=== PATIENT | female | born 1985 | race Two or more races ===

== ENCOUNTER 2019-12-15 00:22 | Emergency (ER) | payer MEDICARE, MEDICAID ==
[~2019-12-15] VITALS: Ht 137.2 cm; Wt 56.8 kg
[~2019-12-15 00:22] MED LIST: ADV250 IH; ALBU8HFA IH; BACL10TA PO; CHOL200026 PO; DIVA-76 PO; DULO30CA2 PO; LEVE1000 PO; PANT40TA25 PO; PRAZ2 PO; ZOLP10TA7 PO
[2019-12-15] MEDS ORDERED: TERA2CAP10 PO (00:48)
[2019-12-15] MEDS ORDERED: NAPR-1025 PO (00:48)
[2019-12-15] MEDS ORDERED: MELA3TAB82 PO (00:48)
[2019-12-15] MEDS ORDERED: TOPI25 PO (00:48)
[2019-12-15] MEDS ORDERED: PERTUSS(ACELL),DIPH,TET VAC/PF 0.5 ML VIAL IM ONE (01:00)
[2019-12-15 01:10] LABS: BASOPHILS % (AUTO) 0.8 % (0.0-2.0); EOSINOPHILS % (AUTO) 1.7 % (1.0-6.0); HEMATOCRIT 42.7 % (36-46); LYMPHOCYTES # (AUTO) 2.8 K/uL (1.0-4.8); LYMPHOCYTES % (AUTO) 34.3 % (22.0-44.0); MEAN CORPUSCULAR HEMOGLOBIN 30.4 pg (26.0-34.0); MEAN CORPUSCULAR HGB CONC 32.7 G/dL (31.0-37.0); MEAN CORPUSCULAR VOLUME 93 fL (80-100); MONOCYTES # (AUTO) 0.5 K/uL (0.1-1.0); MONOCYTES % (AUTO) 6.1 % (2.0-9.0); NEUTROPHILS # (AUTO) 4.7 K/uL (1.8-7.7); NEUTROPHILS % (AUTO) 57.1 % (40.0-70.0); PLATELET COUNT (AUTO) 370 K/uL (150-450); RED CELL DISTRIBUTION WIDTH 13.1 % (11.5-14.5)
[2019-12-15 01:20] LABS: ANION GAP 9 mmol/L (8-16); CALCIUM, TOTAL 9.1 mg/dL (8.8-10.5); CARBON DIOXIDE 25 mmol/L (22-29); CHLORIDE 108 mmol/L (98-107); CREATININE 0.71 mg/dL (0.60-1.30); GLOMERULAR FILTR. RATE CALC > 60 mL/min (>60); GLUCOSE,RANDOM 106 mg/dL (70-110); SODIUM SERUM 142 mmol/L (136-145); UREA NITROGEN, BLOOD 24 mg/dL (7-18)
[2019-12-15 01:34] LABS: ALANINE AMINOTRANSFERASE 23 U/L (12-78); ALBUMIN 4.1 g/dL (3.4-5.0); ALKALINE PHOSPHATASE 79 U/L (46-116); ASPARTATE AMINOTRANSFERASE 17 U/L (15-37); BILIRUBIN,TOTAL 0.2 mg/dL (0.1-1.0); HCG,QUANTITATIVE < 1 mIU/mL (0-6)
[2019-12-15 02:25] LABS: AMPHET/METH SCREEN,URINE NEGATIVE (NEGATIVE); BARBITURATE SCREEN, URINE NEGATIVE (NEGATIVE); BENZODIAZEPINES SCREEN,URINE NEGATIVE (NEGATIVE); CANNABINOID SCREEN,URINE NEGATIVE (NEGATIVE); COCAINE SCREEN,URINE NEGATIVE (NEGATIVE); METHADONE SCREEN, URINE NEGATIVE (NEGATIVE); OPIATE SCREEN,URINE NEGATIVE (NEGATIVE); PHENCYCLIDINE SCREEN,URINE NEGATIVE (NEGATIVE)
[2019-12-15 06:35] LABS: APPEARANCE,URINE CLEAR (CLEAR); BILIRUBIN,URINE NEGATIVE (NEGATIVE); GLUCOSE, URINE (UA) NEGATIVE (NEGATIVE); KETONES,URINE NEGATIVE (NEGATIVE); LEUKOCYTE ESTERASE ,URINE NEGATIVE (NEGATIVE); NITRATE,URINE NEGATIVE (NEGATIVE); OCCULT BLOOD,URINE NEGATIVE (NEGATIVE); PH,URINE 6.5 (5.0-8.0); PROTEIN,URINE SEE CONFIRM (NEGATIVE); UROBILINOGEN,URINE 0.2 mg/dL (<=1.0)
[2019-12-15] MEDS ORDERED: LEVE500T53 PO (06:40)
[2019-12-15 06:49] LABS: BACTERIA,URINE None Seen /HPF (None Seen); FINE GRANULAR CASTS,URINE 0-2 /LPF (None Seen); RBC,URINE 0-2 /HPF (0-2); SULFOSALICYLIC ACID,URINE 1+ (Negative); WBC,URINE 0-2 /HPF (0-5)
[2019-12-15] MEDS ORDERED: ESCI10TA PO (07:01)
[2019-12-15] MEDS ORDERED: MONT10TA21 PO (07:11)
[2019-12-15] MEDS ORDERED: OMEP10 PO (07:11)
[2019-12-15] MEDS ORDERED: FLUT16H NASAL (07:11)
[2019-12-15] MEDS ORDERED: TOPIRAMATE 25 MG TABLET PO ONE (09:00)
[2019-12-15] MEDS ORDERED: ESCITALOPRAM OXALATE 10 MG TABLET PO ONE (09:00)
[2019-12-15] MEDS ORDERED: OMEPRAZOLE 10 MG CAPSULE PO ONE (09:00)
[2019-12-15] MEDS ORDERED: NAPROXEN 250 MG TABLET PO ONE (09:00)
[2019-12-15] MEDS ORDERED: LevETIRAcetam 500 MG TABLET PO ONE (09:00)
[2019-12-15] MEDS ORDERED: TERAZOSIN HCL 2 MG CAPSULE PO ONE (09:00)
[2019-12-15] MEDS ORDERED: BACLOFEN 10 MG TABLET PO ONE (09:00)
[2019-12-15] MEDS ORDERED: MONTELUKAST SODIUM 10 MG TABLET PO ONE (09:00)
[2019-12-15 10:47] VITALS: BP 123/58
== END 2019-12-15 12:15 | disposition home or self-care (01) ==
LOC: EMS 00:23
DX: S01.01XA Laceration without foreign body of scalp, initial encounter (principal); G80.9 Cerebral palsy, unspecified; M19.90 Unspecified osteoarthritis, unspecified site; M81.0 Age-related osteoporosis without current pathological fracture; F12.90 Cannabis use, unspecified, uncomplicated; Z79.899 Other long term (current) drug therapy; Z98.890 Other specified postprocedural states; Z91.013 Allergy to seafood; Y04.0XXA Assault by unarmed brawl or fight, initial encounter; Y93.89 Activity, other specified; Y92.89 Other specified places as the place of occurrence of the external cause; Y99.8 Other external cause status
CPT/HCPCS: 12002; 36415; 70450; 71045; 80053; 80307; 81001; 84702; 85025; 90471; 90715; 99285; G0480